=== PATIENT | female | born 1990 | race Caucasian/White ===

== ENCOUNTER → 2017-11-28 | Outpatient (CLI) | payer OTHER ==
--- NOTE | 2017-11-28 13:20 | RADIOLOGY REPORT (SQ) ---
EXAM DESCRIPTION: U/S ABDOMEN LIMITED W/O DOP COMPLETED DATE/TIME: 11/28/2017 11:08 am REASON FOR STUDY: RIGHT UPPER QUADRANT PAIN R10.11 RIGHT UPPER QUADRANT PAIN COMPARISON: None. TECHNIQUE: Dynamic and static grayscale images acquired of the abdomen and recorded on PACS. Additio nal selected color Doppler and spectral images recorded. LIMITATIONS: None. FINDINGS: PANCREAS: Midline pancreas unremarkable LIVER: No masses. Echotexture normal. LIVER VASCULATURE: Normal directional flow of the main portal vein and hepatic veins. GALLBLADDER: No stones. Normal wall thickness. No pericholecystic fluid. ULTRASOUND-DETECTED MICHAEL'S SIGN: Negative. INTRAHEPATIC DUCTS AND COMMON DUCT: CBD and intrahepatic ducts normal caliber. No filling defects. INFERIOR VENA CAVA: Normal flow. AORTA: No aneurysm. RIGHT KIDNEY: Normal size. Normal echogenicity. No solid or suspicious masses. No hydronephrosis. No calcifications. PERITONEAL AND RIGHT PLEURAL SPACE: No ascites or effusions. OTHER: No other significant findings. IMPRESSION: NORMAL RIGHT UPPER QUADRANT ULTRASOUND. TECHNICAL DOCUMENTATION: JOB ID: [id number] [employer]- All Rights Reserved Reading location - IP/workstation name: [email or web address]
== END ==
LOC: RAD 10:26
PROVIDERS: ATTEND Physician Assistant
DX: R10.11 Right upper quadrant pain (principal)
CPT/HCPCS: 76705

== ENCOUNTER → 2017-11-30 | Outpatient (CLI) | payer OTHER ==
[2017-11-30 13:02] LABS: ABSOLUTE BASOPHILS # (AUTO) 0.1 10^3/uL (0.0-0.2); ABSOLUTE EOSINOPHILS # (AUTO) 0.1 10^3/uL (0.0-0.6); ABSOLUTE LYMPHOCYTES (AUTO) 1.8 10^3/uL (0.5-4.7); ABSOLUTE MONOCYTES (AUTO) 0.4 10^3/uL (0.1-1.4); ABSOLUTE NEUT (AUTO) 4.8 10^3/uL (1.7-8.2); BASOPHILS % (AUTO) 0.8 % (0-2); EOSINOPHILS % (AUTO) 1.6 % (0-6); HEMATOCRIT 36.7 % (36.0-47.0); LYMPHOCYTES % (AUTO) 25.2 % (13-45); MEAN CORPUSCULAR HEMOGLOBIN 28.7 pg (27.0-33.4); MEAN CORPUSCULAR HGB CONC 35.4 g/dL (32.0-36.0); MEAN CORPUSCULAR VOLUME 81 fl (80-97); MONOCYTES % (AUTO) 5.8 % (3-13); PLATELET COUNT 323 10^3/uL (150-450); RED BLOOD COUNT 4.52 10^6/uL (3.72-5.28); RED CELL DISTRIBUTION WIDTH 14.2 % (11.5-14.0); SEGMENTED NEUTROPHILS % (AUTO) 66.6 % (42-78); TOTAL CELLS COUNTED % (AUTO) 100 %; WHITE BLOOD COUNT 7.2 10^3/uL (4.0-10.5)
[2017-11-30 13:31] LABS: ALANINE AMINOTRANSFERASE 22 U/L (9-52); ALKALINE PHOSPHATASE 70 U/L (38-126); ANION GAP 12 (5-19); ASPARTATE AMINO TRANSFERASE 18 U/L (14-36); BILIRUBIN,DIRECT 0.3 mg/dL (0.0-0.4); BILIRUBIN,TOTAL 0.5 mg/dL (0.2-1.3); BLOOD UREA NITROGEN 12 mg/dL (7-20); CALCIUM 8.9 mg/dL (8.4-10.2); CARBON DIOXIDE 28 mmol/L (22-30); CHLORIDE 104 mmol/L (98-107); GLUCOSE 87 mg/dL (75-110); POTASSIUM 4.3 mmol/L (3.6-5.0); TOTAL PROTEIN 7.1 g/dL (6.3-8.2)
== END ==
LOC: OD 11:55
PROVIDERS: ATTEND Physician Assistant
DX: R10.11 Right upper quadrant pain (principal)
CPT/HCPCS: 36415; 80053; 83690; 85025

== ENCOUNTER → 2017-12-14 | Outpatient (CLI) | payer OTHER ==
[2017-12-14 13:18] LABS: ABSOLUTE EOSINOPHILS # (AUTO) 0.1 10^3/uL (0.0-0.6); ABSOLUTE LYMPHOCYTES (AUTO) 1.7 10^3/uL (0.5-4.7); ABSOLUTE MONOCYTES (AUTO) 0.4 10^3/uL (0.1-1.4); ABSOLUTE NEUT (AUTO) 5.1 10^3/uL (1.7-8.2); BASOPHILS % (AUTO) 0.5 % (0-2); EOSINOPHILS % (AUTO) 1.3 % (0-6); HEMOGLOBIN 13.8 g/dL (12.0-15.5); LYMPHOCYTES % (AUTO) 23.6 % (13-45); MEAN CORPUSCULAR HEMOGLOBIN 28.5 pg (27.0-33.4); MEAN CORPUSCULAR HGB CONC 35.3 g/dL (32.0-36.0); MEAN CORPUSCULAR VOLUME 81 fl (80-97); MONOCYTES % (AUTO) 5.2 % (3-13); PLATELET COUNT 322 10^3/uL (150-450); RED BLOOD COUNT 4.84 10^6/uL (3.72-5.28); RED CELL DISTRIBUTION WIDTH 14.2 % (11.5-14.0); SEGMENTED NEUTROPHILS % (AUTO) 69.4 % (42-78); TOTAL CELLS COUNTED % (AUTO) 100 %; WHITE BLOOD COUNT 7.4 10^3/uL (4.0-10.5)
[2017-12-14 13:44] LABS: ALANINE AMINOTRANSFERASE 20 U/L (9-52); ALBUMIN 4.5 g/dL (3.5-5.0); ALKALINE PHOSPHATASE 54 U/L (38-126); ANION GAP 14 (5-19); ASPARTATE AMINO TRANSFERASE 17 U/L (14-36); BILIRUBIN,DIRECT 0.3 mg/dL (0.0-0.4); BILIRUBIN,TOTAL 0.4 mg/dL (0.2-1.3); BLOOD UREA NITROGEN 9 mg/dL (7-20); CALCIUM 9.2 mg/dL (8.4-10.2); CARBON DIOXIDE 25 mmol/L (22-30); CHLORIDE 105 mmol/L (98-107); GLUCOSE 75 mg/dL (75-110); LIPASE 66.7 U/L (23-300); POTASSIUM 4.3 mmol/L (3.6-5.0); SODIUM 144.3 mmol/L (137-145)
== END ==
LOC: OD 12:22
PROVIDERS: ATTEND Physician Assistant
DX: R10.11 Right upper quadrant pain (principal)
CPT/HCPCS: 36415; 80053; 83690; 85025

== ENCOUNTER 2017-12-19 09:50 | Day surgery (SDC) | payer OTHER ==
[~2017-12-19 09:50] MED LIST: DIPHENHYDRAMINE HCL 50 MG/ML VIAL ONE; EPINEPHRINE INJ 1 MG/10 ML DISP.SYRIN ONE; FENTANYL CITRATE INJ/PF 100 MCG/2 ML AMPUL ONE; FLUMAZENIL INJ 0.5 MG/5 ML VIAL ONE; GLUCAGON,HUMAN RECOMB 1 MG INJ ONE; NALOXONE HCL INJ/PF 0.4 MG/1 ML SDV ONE; ONDANSETRON HCL INJ/PF 4 MG/2 ML SDV ONE
[2017-12-19] MEDS: MIDAZOLAM 2 MG/2 ML INJ ONE ×2 (10:20→10:24)
--- NOTE | 2017-12-19 10:31 | Operative Report ---
Operative Report DATE OF SURGERY: 12/19/17 Operative Report: The risks benefits and alternatives of the procedure explained to the patient in detail and informed consent is obtained .A GIF Olympus video scope was inserted into the patient's mouth and hypopharynx, the esophagus is identified intubated and insufflated, the scope was then advanced through the esophagus stomach and duodenum ,retroflexion maneuver is done, the esophagus stomach and first and second portions of the duodenum examined PREOPERATIVE DIAGNOSIS: Gastroesophageal reflux disease POSTOPERATIVE DIAGNOSIS: Gastritis status post biopsy rule out Helicobacter pylori OPERATION: EGD with biopsy SURGEON: ROMAN DILL ANESTHESIA: Moderate Sedation - 4 mg of Versed, 75 mcg of fentanyl. Conscious sedation monitoring time 30 minutes. TISSUE REMOVED OR ALTERED: As noted above. COMPLICATIONS: None. ESTIMATED BLOOD LOSS: None. INTRAOPERATIVE FINDINGS: As noted above. PROCEDURE: Patient tolerated the procedure well. No immediate postprocedure complications are noted. Patient discharged in good condition. Discharge date 12/19/2017. Discharge diet: Regular. Discharge activity: Regular. 2-3 week follow-up to discuss findings. Patient is instructed call the office or proceed to the emergency room should there be any further problems or questions. We will wait on pathology.
[2017-12-19 11:29] VITALS: BP 108/69
== END 2017-12-19 11:30 | disposition home or self-care (01) ==
LOC: END 09:50
PROVIDERS: ATTEND Internal Medicine Gastroenterology
DX: K29.50 Unspecified chronic gastritis without bleeding (principal); K21.9 Gastro-esophageal reflux disease without esophagitis; E03.9 Hypothyroidism, unspecified; Z79.899 Other long term (current) drug therapy
CPT/HCPCS: 43239; 88342 ×2; 88305 ×2; J2250; J3010; J0171; J1200; J1610; J2310; J2405; J3490

== ENCOUNTER → 2017-12-19 | Outpatient (CLI) | payer OTHER ==
--- NOTE | 2017-12-19 10:00 | RADIOLOGY REPORT (SQ) ---
EXAM DESCRIPTION: NM HIDA SCAN WITH CCK COMPLETED DATE/TIME: 12/19/2017 9:48 am REASON FOR STUDY: RUQ PAIN R10.11 RIGHT UPPER QUADRANT PAIN COMPARISON: None. RADIONUCLIDE AND DOSE: DOSAGE RADIONUCLIDE: 5.26 millicuries Tc99m Mebrofenin. DOSAGE CCK: 1.5 micrograms. DOSAGE MORPHINE: Not required. The route of agent administration: Intravenous TECHNIQUE: Serial imaging right upper quadrant up to 60 minutes following injection of radionuclide. CCK injected after gallbladder visualized. LIMITATIONS: None. FINDINGS: LIVER: Normal visualization without areas of photopenia. INTRAHEPATIC BILE DUCTS: Normal size and no delay in visualization. COMMON BILE DUCT: Normal without dilatation. GALLBLADDER: Normal visualization. Calculated ejection fraction of 90%. Normal range is greater th an 35%. PHYSICAL RESPONSE: Patients presenting complaint was reproduced. OTHER: No other significant finding. IMPRESSION: Normal study without cystic or common duct obstruction. Ejection fraction is normal. W ith CCK administration the patient's symptoms were reproduced. TECHNICAL DOCUMENTATION: JOB ID: [id number] [employer]- All Rights Reserved Reading location - IP/workstation name: [email or web address]
== END ==
LOC: RAD 07:37
PROVIDERS: ATTEND Physician Assistant
DX: R10.11 Right upper quadrant pain (principal)
CPT/HCPCS: 78227; J2805; A9537; Q9969

== ENCOUNTER 2018-03-24 16:03 | Inpatient (IN) | payer OTHER ==
[2018-03-24] MEDS ORDERED: NORMAL SALINE 1000 ML 1,000 ML IV ONE ×3 (16:51→21:45)
[2018-03-24] MEDS ORDERED: ONDANSETRON HCL INJ/PF 4 MG/2 ML SDV IV ONE (16:52)
[2018-03-24] MEDS ORDERED: MORPHINE SULFATE 10 MG/ML INJ IV ONE (16:52)
--- NOTE | 2018-03-24 16:56 | ER Document Report ---
ED Medical Screen (RME) - General Chief Complaint: Post Surgical Pain Stated Complaint: ABDOMINAL PAIN POST SURGERY Time Seen by Provider: 03/24/18 16:46 Notes: Patient is a 27 year old female with recent lap josh at [facility] that presents to the emergency department for chief complaint of abdominal pain. Patient reports that she had a lap josh on Sunday at [facility] and she did stay overnight due to posts operative pain, she reports that the pain has not improved in the RUQ and she developed bruising around the one port site. And she noticed some redness just below her bellybutton and was worried about that as well. ROS: Other than noted above, the 12 point review of systems was reviewed with the patient and were negative, all pertinent findings are included in the HPI. PHYSICAL EXAMINATION: Vital signs reviewed. GENERAL: Well-appearing, well-nourished and in no acute distress. HEAD: Atraumatic, normocephalic. EYES: Pupils equal round extraocular movements intact, conjunctiva are normal. ENT: Nares patent NECK: Normal range of motion CV: Heart regular rate and rhythm LUNGS: No respiratory distress Abdomen: There is an area of ecchymosis around her one port site, without evidence of infection, likely subcutaneous hematoma from trocar placement, around the umbilicus, there is an area of erythema just below, that tender to palpate, no bruising noted from the wound site, that does have Dermabond in place. Patient also has some right upper quadrant tenderness, and right CVA tenderness. Musculoskeletal: Normal range of motion NEUROLOGICAL: Normal speech PSYCH: Normal mood, normal affect. MDM: Patient seen and examined for rapid initial assessment. Vital signs reviewed. A comprehensive ED assessment and evaluation of the patient, analysis of test results and completion of the medical decision making process will be conducted by additional ED providers. *Note is created using voice recognition software and may contain spelling, syntax or grammatical errors. TRAVEL OUTSIDE OF THE [place] IN LAST 30 DAYS: No - Related Data Allergies/Adverse Reactions: No Known Allergies Allergy (Verified 12/19/17 10:01) Past Medical History - Past Medical History Cardiac Medical History: Denies: Hx Coronary Artery Disease, Hx Heart Attack, Hx Hypertension Pulmonary Medical History: Denies: Hx Asthma, Hx Bronchitis, Hx COPD, Hx Pneumonia Neurological Medical History: Reports: Hx Migraine, Hx Seizures - UNKNOWN ORIGIN NO MEDS 2006. Denies: Hx Cerebrovascular Accident Endocrine Medical History: Reports: Hx Hypothyroidism Musculoskeltal Medical History: Denies Hx Arthritis Past Surgical History: Reports: Hx Breast Surgery. Denies: Hx Hysterectomy - Immunizations Immunizations up to date: Yes Hx Diphtheria, Pertussis, Tetanus Vaccination: Yes Physical Exam - Vital signs Vitals: Temp Pulse Resp BP Pulse Ox 98.3 F 112 H 18 125/88 H 100 03/24/18 16:10 03/24/18 16:10 03/24/18 16:10 03/24/18 16:10 03/24/18 16:10 Course - Vital Signs Vital signs: Temp Pulse Resp BP Pulse Ox 98.3 F 112 H 18 125/88 H 100 03/24/18 16:10 03/24/18 16:10 03/24/18 16:10 03/24/18 16:10 03/24/18 16:10 Doctor's Discharge - Discharge Referrals: CONNIE JEFF PA [Primary Care Provider] - Follow up as needed
[2018-03-24 17:49] LABS: ABSOLUTE LYMPHOCYTES (AUTO) 0.9 10^3/uL (0.5-4.7); ABSOLUTE MONOCYTES (AUTO) 0.5 10^3/uL (0.1-1.4); ABSOLUTE NEUT (AUTO) 7.3 10^3/uL (1.7-8.2); BASOPHILS % (AUTO) 0.4 % (0-2); EOSINOPHILS % (AUTO) 0.2 % (0-6); HEMATOCRIT 32.4 % (36.0-47.0); HEMOGLOBIN 11.2 g/dL (12.0-15.5); LYMPHOCYTES % (AUTO) 9.8 % (13-45); MEAN CORPUSCULAR HGB CONC 34.6 g/dL (32.0-36.0); MEAN CORPUSCULAR VOLUME 84 fl (80-97); MONOCYTES % (AUTO) 6.1 % (3-13); PLATELET COUNT 311 10^3/uL (150-450); RED BLOOD COUNT 3.86 10^6/uL (3.72-5.28); RED CELL DISTRIBUTION WIDTH 15.3 % (11.5-14.0); SEGMENTED NEUTROPHILS % (AUTO) 83.5 % (42-78); TOTAL CELLS COUNTED % (AUTO) 100 %; WHITE BLOOD COUNT 8.8 10^3/uL (4.0-10.5)
[2018-03-24 17:59] LABS: APPEARANCE,URINE SLIGHTLY-CLOUDY; BILIRUBIN,URINE NEGATIVE (NEGATIVE); COLOR,URINE STRAW; GLUCOSE, URINE NEGATIVE (NEGATIVE); KETONES,URINE NEGATIVE (NEGATIVE); LEUKOCYTE ESTERASE,URINE LARGE (NEGATIVE); NITRITE,URINE NEGATIVE (NEGATIVE); PROTEIN,URINE NEGATIVE (NEGATIVE); URINE SPECIFIC GRAVITY 1.008; UROBILINOGEN,URINE NEGATIVE mg/dL (<2.0)
--- NOTE | 2018-03-24 18:48 | ER Document Report ---
ED General - General Chief Complaint: Post Surgical Pain Stated Complaint: ABDOMINAL PAIN POST SURGERY Time Seen by Provider: 03/24/18 16:46 Notes: Patient is a 27-year-old female without chronic medical problems, 2 days postop from a lap scopic cholecystectomy who presents with increasing abdominal pain, bruising around surgical sites and feeling of lightheadedness and dizziness. Patient states that immediately postoperatively she felt like she was bleeding around her surgical sites. She states over the next 24 hours she noted increasing bruising around 2 of the 3 laparoscopic sites that has gotten progressively worse since that time. She also notes a diffuse, aching, cramping pain to her abdomen. Nothing improves or worsens her symptoms. She has not had fever but states that she feels generally unwell. She has not contacted her surgeon regarding today's concerns. TRAVEL OUTSIDE OF THE [place] IN LAST 30 DAYS: No - Related Data Allergies/Adverse Reactions: No Known Allergies Allergy (Verified 12/19/17 10:01) Past Medical History - General Information source: Patient - Social History Smoking Status: Never Smoker Chew tobacco use (# tins/day): No Frequency of alcohol use: None Drug Abuse: None Lives with: Spouse/Significant other Family History: Reviewed & Not Pertinent Patient has suicidal ideation: No Patient has homicidal ideation: No - Past Medical History Cardiac Medical History: Denies: Hx Coronary Artery Disease, Hx Heart Attack, Hx Hypertension Pulmonary Medical History: Denies: Hx Asthma, Hx Bronchitis, Hx COPD, Hx Pneumonia Neurological Medical History: Reports: Hx Migraine, Hx Seizures - UNKNOWN ORIGIN NO MEDS 2006. Denies: Hx Cerebrovascular Accident Endocrine Medical History: Reports: Hx Hypothyroidism Renal/ Medical History: Denies: Hx Peritoneal Dialysis Musculoskeletal Medical History: Denies Hx Arthritis Past Surgical History: Reports: Hx Breast Surgery, Hx Cholecystectomy. Denies: Hx Hysterectomy - Immunizations Immunizations up to date: Yes Hx Diphtheria, Pertussis, Tetanus Vaccination: Yes Review of Systems - Review of Systems Notes: Constitutional: Negative for fever. HENT: Negative for sore throat. Eyes: Negative for visual changes. Cardiovascular: Negative for chest pain. Respiratory: Negative for shortness of breath. Gastrointestinal: Positive for abdominal pain and nausea Genitourinary: Negative for dysuria. Musculoskeletal: Negative for back pain. Skin: Positive for bruising around surgical site Neurological: Negative for headaches, weakness or numbness. 10 point ROS negative except as marked above and in HPI. Physical Exam - Vital signs Vitals: Temp Pulse Resp BP Pulse Ox 98.3 F 112 H 18 125/88 H 100 03/24/18 16:10 03/24/18 16:10 03/24/18 16:10 03/24/18 16:10 03/24/18 16:10 Interpretation: Tachycardic Notes: PHYSICAL EXAMINATION: GENERAL: Appears moderately uncomfortable but in no acute distress HEAD: Atraumatic, normocephalic. EYES: Pupils equal round and reactive to light, extraocular movements intact, sclera anicteric, conjunctiva are normal. ENT: nares patent, oropharynx clear without exudates. Moderately dry mucous membranes. NECK: Normal range of motion, supple without lymphadenopathy LUNGS: Breath sounds clear to auscultation bilaterally and equal. No wheezes rales or rhonchi. HEART: Regular tachycardia without murmurs ABDOMEN: Soft, generalized abdominal discomfort with no specific localization, normoactive bowel sounds. No guarding, no rebound. No masses appreciated. EXTREMITIES: Normal range of motion, no pitting or edema. No cyanosis. NEUROLOGICAL: No focal neurological deficits. Moves all extremities spontaneously and on command. PSYCH: Normal mood, normal affect. SKIN: Warm, Dry, mild diffuse pallor, ecchymosis around 2 of 3 total laporoscopic sites on the abdomen Course - Re-evaluation Re-evalutation: 03/24/18 18:45 Patient presents with 2 days of progressively worsening diffuse abdominal pain status post cholecystectomy 48 hours ago. The patient does have notable ecchymosis of her multiple of the laparoscopic sites, abdominal exam shows some mild diffuse tenderness mostly localized to the lower abdomen. No rebound or guarding. She does have some diffuse pallor, mild anemia noted on CBC which is an approximate two-point drop in her hemoglobin from November of this year. Surgery was performed at [facility] patient states she did not feel comfortable following up there as she did not have a good postoperative experience. She has not had fever or constitutional symptoms. Will proceed with CT scan of the abdomen and pelvis given the patient's new onset anemia, increasing generalized abdominal pain concern for possible postoperative intra- abdominal bleeding. 03/24/18 20:33 CT abdomen pelvis does show blood collecting under the liver. No active blush on CT of the abdomen pelvis with IV contrast. I have discussed with the surgeon on-call Dr. Barnes who has accepted the patient and will come to evaluate. - Vital Signs Vital signs: Temp Pulse Resp BP Pulse Ox 98.3 F 112 H 18 125/88 H 100 03/24/18 16:10 03/24/18 16:10 03/24/18 16:10 03/24/18 16:10 03/24/18 16:10 - Laboratory Result Diagrams: 03/24/18 17:20 03/24/18 18:30 Laboratory results interpreted by me: 03/24/18 03/24/18 03/24/18 17:20 17:20 18:30 Hgb 11.2 L Hct 32.4 L RDW 15.3 H Seg Neutrophils % 83.5 H Lymphocytes % 9.8 L Calcium 8.2 L AST 101 H ALT 131 H Total Protein 6.2 L Albumin 3.3 L Lipase 18.9 L Ur Leukocyte Esterase LARGE H - Diagnostic Test Radiology reviewed: Image reviewed, Reports reviewed Radiology results interpreted by me: 03/24/18 20:34 CT abdomen pelvis: Blood collection inferior to the liver Discharge - Discharge Clinical Impression: Blood loss anemia Postoperative haemorrhage Qualifiers: Surgical complication system/body Area: digestive system Procedure type: non- digestive system Qualified Code(s): K91.841 - Postprocedural hemorrhage of a digestive system organ or structure following other procedure Abdominal pain Qualifiers: Abdominal location: unspecified location Qualified Code(s): R10.9 - Unspecified abdominal pain Condition: Fair Disposition: ADMITTED OBSERVATION Admitting Provider: Surgicalist Unit Admitted: Surgical Floor Referrals: CONNIE JEFF PA [Primary Care Provider] - Follow up as needed
[2018-03-24 19:16] LABS: ALANINE AMINOTRANSFERASE 131 U/L (9-52); ALBUMIN 3.3 g/dL (3.5-5.0); ALKALINE PHOSPHATASE 71 U/L (38-126); ANION GAP 11 (5-19); ASPARTATE AMINO TRANSFERASE 101 U/L (14-36); BILIRUBIN,DIRECT 0.4 mg/dL (0.0-0.4); BILIRUBIN,TOTAL 0.7 mg/dL (0.2-1.3); BLOOD UREA NITROGEN 7 mg/dL (7-20); CALCIUM 8.2 mg/dL (8.4-10.2); CARBON DIOXIDE 26 mmol/L (22-30); CHLORIDE 105 mmol/L (98-107); GLUCOSE 86 mg/dL (75-110); LIPASE 18.9 U/L (23-300); POTASSIUM 4.2 mmol/L (3.6-5.0); SODIUM 142.2 mmol/L (137-145); TOTAL PROTEIN 6.2 g/dL (6.3-8.2)
--- NOTE | 2018-03-24 19:57 | RADIOLOGY REPORT (SQ) ---
EXAM DESCRIPTION: CT ABD/PELVIS WITH IV ONLY COMPLETED DATE/TIME: 03/24/2018 7:14 pm REASON FOR STUDY: post op pain, abdominal wall bruising COMPARISON: 12/19/2017 and earlier TECHNIQUE: CT scan of the abdomen and pelvis performed using helical scanning technique with dynamic intravenous contrast injection. No oral contrast. Images reviewed with lung, soft tissue, and bone windows. Reconstructed coronal and sagittal MPR images reviewed. Delayed images for evaluation of the urinary system also acquired. All images stored on PACS. All CT scanners at this facility use dose modulation, iterative reconstruction, and/or weight based d osing when appropriate to reduce radiation dose to as low as reasonably achievable (ALARA). [facility]: Dose Right [facility]: CareDose [facility]: Dose Right [facility]: Teradose 4D [facility]: Datapipe CONTRAST TYPE AND DOSE: contrast/concentration: Isovue 350.00 mg/ml; Total Contrast Delivered: 77.0 ml; Total Saline Delivered: 67.0 ml 77 mL IV of Omnipaque 350- low osmolar. RENAL FUNCTION: None required. The patient is less than 50 years old. RADIATION DOSE: CT Rad equipment meets quality standard of care and radiation dose reduction techniq ues were employed. CTDIvol: 10.4 - 13.5 mGy. DLP: 1365 mGy-cm.. LIMITATIONS: None. FINDINGS: LIVER: Along the undersurface of the right hepatic lobe is a moderate amount of hyper 10 m aterial that appears to originate from the gallbladder fossa. Liver otherwise is normal. No focal h epatic mass. No ductal dilatation. SPLEEN: Normal size. No focal lesions. PANCREAS: No masses. No significant calcifications. No adjacent inflammation or peripancreatic fluid collections. Pancreatic duct not dilated. GALLBLADDER: Surgically absent. ADRENAL GLANDS: No significant masses or asymmetry. RIGHT KIDNEY AND URETER: No solid masses. No significant calcifications. No hydronephrosis or hyd roureter. LEFT KIDNEY AND URETER: No solid masses. No significant calcifications. No hydronephrosis or hydr oureter. AORTA AND VESSELS: No aneurysm. No dissection. Renal arteries, SMA, celiac without stenosis. RETROPERITONEUM: No retroperitoneal adenopathy, hemorrhage or masses. BOWEL AND PERITONEAL CAVITY: No masses or inflammatory changes. No free fluid or peritoneal masses. APPENDIX: Normal. PELVIS: No mass. No free fluid. Normal bladder. ABDOMINAL WALL: No masses. No hernias. Stranding of the anterior subcutaneous fat, postsurgical. BONES: No significant or acute findings. OTHER: No other significant finding. IMPRESSION: Moderate amount of hemoperitoneum along the undersurface of the right hepatic lobe which appears to be originating from the gallbladder fossa. COMMENT: This report was called to the charge nurse Yue at19:47 on 03/24/2018. TECHNICAL DOCUMENTATION: JOB ID: [id number] Quality ID # [id number]: Final reports with documentation of one or more dose reduction techniques (e.g., Au tomated exposure control, adjustment of the mA and/or kV according to patient size, use of iterative reconstruction technique) 2010 [employer]- All Rights Reserved Reading location - IP/workstation name: [email or web address]
[2018-03-24] MEDS ORDERED: MORPHINE SULFATE 10 MG/ML INJ IV PRN (20:15)
--- NOTE | 2018-03-24 21:16 | PDOC H&P ---
History of Present Illness Admission Date/PCP: 03/24/18 20:50 JUAN VARMA Patient complains of: abdominal pains with lightheadedness History of Present Illness: SAMUEL AGARWAL is a 27 year old female who is 2 days post laparoscopic cholecystectomy at the [facility]. Post operatively has been c/o abdominal pains and bruising along the right lateral trocar site and some bloody drainage from umbilical trocar site. She was discharged yesterday. She has not really felt well and noted pains along increasing bruise site on her right lateral trocar site as well as lightheadedness which prompted her to take her to the ED. A Ct scan of the abdomen was done which showed moderate hemoperitoneum underneath the right lobe of the liver likely from cholecystectomy site. She is tachycardic and given a liyer of fluids which somehow relieved her lightheadedness. Denies fever/chills, nausea/vomiting nor diarrhea. Admits to constipation and does not feel any urgency to void. Past Medical History Cardiac Medical History: Denies: Coronary Artery Disease, Myocardial Infarction, Hypertension Pulmonary Medical History: Denies: Asthma, Bronchitis, Chronic Obstructive Pulmonary Disease (COPD), Pneumonia Neurological Medical History: Reports: Migraine, Seizures - UNKNOWN ORIGIN NO MEDS 2006 Endocrine Medical History: Reports: Hypothyroidism Musculoskeltal Medical History: Denies: Arthritis Hematology: Reports: Anemia Past Surgical History Past Surgical History: Reports: Cholecystectomy Denies: Hysterectomy Social History Lives with: Spouse/Significant other Smoking Status: Never Smoker Family History Family History: Reviewed & Not Pertinent Parental Family History Reviewed: Yes - both parents are healthy except for some thyroid problems Children Family History Reviewed: No Sibling(s) Family History Reviewed.: No Medication/Allergy Home Medications: Levothyroxine Sodium [Synthroid] 75 mcg PO DAILY 12/19/17 Allergies/Adverse Reactions: No Known Allergies Allergy (Verified 12/19/17 10:01) Review of Systems Constitutional: PRESENT: as per HPI Eyes: PRESENT: other - no visual/hearing changes Cardiovascular: PRESENT: other - no chest pains/cough Gastrointestinal: PRESENT: abdominal pain, constipation Neurological: PRESENT: other - lightheadedness Physical Exam Vital Signs: Temp Pulse Resp BP Pulse Ox 98.3 F 112 H 18 125/88 H 100 03/24/18 16:10 03/24/18 16:10 03/24/18 16:10 12/02/18 16:10 03/24/18 16:10 General appearance: PRESENT: mild distress Head exam: PRESENT: atraumatic Eye exam: PRESENT: conjunctiva pink Mouth exam: PRESENT: moist Neck exam: PRESENT: full ROM Respiratory exam: PRESENT: clear to auscultation benoit Cardiovascular exam: PRESENT: tachycardia Pulses: PRESENT: normal radial pulses Vascular exam: PRESENT: normal capillary refill GI/Abdominal exam: PRESENT: soft, tenderness - mild tenderness primarily around the bruised trocar site on the RUQ, other - mild redness around umbilical trocar site Rectal exam: PRESENT: deferred Extremities exam: PRESENT: full ROM Musculoskeletal exam: PRESENT: ambulatory Neurological exam: PRESENT: alert, oriented to person, oriented to place, oriented to time, oriented to situation Psychiatric exam: PRESENT: appropriate affect Skin exam: PRESENT: normal color, warm Results Impressions: Abdomen/Pelvis CT 03/24/18 18:42 IMPRESSION: Moderate amount of hemoperitoneum along the undersurface of the right hepatic lobe which appears to be originating from the gallbladder fossa. Assessment & Plan - Diagnosis (1) Abdominal pain Qualifiers: Abdominal location: unspecified location Qualified Code(s): R10.9 - Unspecified abdominal pain Is this a current diagnosis for this admission?: Yes (2) Blood loss anemia Is this a current diagnosis for this admission?: Yes (3) Postoperative haemorrhage Qualifiers: Surgical complication system/body Area: digestive system Procedure type: non-digestive system Qualified Code(s): K91.841 - Postprocedural hemorrhage of a digestive system organ or structure following other procedure Is this a current diagnosis for this admission?: Yes - Time Time Spent: 30 to 50 Minutes - Inpatient Certification Medical Necessity: Need Close Monitoring Due to Risk of Patient Decompensation, Need For IV Fluids, Need for IV Antibiotics - Plan Summary Plan Summary: Monitor Vital signs and H/H, Coags and WBC as well as LFT's Empiric antibiotics for cellulitis umbilical trocar site Hydrate
[2018-03-24] MEDS ORDERED: ONDANSETRON HCL INJ/PF 4 MG/2 ML SDV IV PRN (21:17)
[2018-03-24] MEDS: MORPHINE SULFATE 10 MG/ML INJ IV PRN (22:37)
[2018-03-25] MEDS: OXYCODONE-ACETAMINOPHEN 5-325 MG TABLET PO PRN ×2 (00:29→06:09)
[2018-03-25] MEDS: MORPHINE SULFATE 10 MG/ML INJ IV PRN (03:44)
[2018-03-25 06:47] LABS: INTERNATIONAL RATION (INR) 1.03; PROTHROMBIN TIME 14.1 SEC (11.4-15.4)
[2018-03-25 06:50] LABS: ABSOLUTE EOSINOPHILS # (AUTO) 0.1 10^3/uL (0.0-0.6); ABSOLUTE LYMPHOCYTES (AUTO) 1.1 10^3/uL (0.5-4.7); ABSOLUTE MONOCYTES (AUTO) 0.5 10^3/uL (0.1-1.4); ABSOLUTE NEUT (AUTO) 4.4 10^3/uL (1.7-8.2); BASOPHILS % (AUTO) 0.6 % (0-2); EOSINOPHILS % (AUTO) 1.3 % (0-6); HEMATOCRIT 24.5 % (36.0-47.0); LYMPHOCYTES % (AUTO) 17.7 % (13-45); MEAN CORPUSCULAR HEMOGLOBIN 29.2 pg (27.0-33.4); MEAN CORPUSCULAR HGB CONC 34.7 g/dL (32.0-36.0); MEAN CORPUSCULAR VOLUME 84 fl (80-97); MONOCYTES % (AUTO) 8.4 % (3-13); PLATELET COUNT 241 10^3/uL (150-450); RED BLOOD COUNT 2.91 10^6/uL (3.72-5.28); RED CELL DISTRIBUTION WIDTH 14.7 % (11.5-14.0); TOTAL CELLS COUNTED % (AUTO) 100 %; WHITE BLOOD COUNT 6.1 10^3/uL (4.0-10.5)
[2018-03-25 06:56] LABS: HEMOGLOBIN 8.5 g/dL (12.0-15.5)
[2018-03-25 07:23] LABS: ALANINE AMINOTRANSFERASE 127 U/L (9-52); ALBUMIN 2.7 g/dL (3.5-5.0); ALKALINE PHOSPHATASE 65 U/L (38-126); ANION GAP 9 (5-19); ASPARTATE AMINO TRANSFERASE 113 U/L (14-36); BILIRUBIN,DIRECT 0.4 mg/dL (0.0-0.4); BILIRUBIN,TOTAL 0.6 mg/dL (0.2-1.3); CALCIUM 7.9 mg/dL (8.4-10.2); CARBON DIOXIDE 25 mmol/L (22-30); CHLORIDE 106 mmol/L (98-107); GLUCOSE 85 mg/dL (75-110); SODIUM 140.2 mmol/L (137-145); TOTAL PROTEIN 5.3 g/dL (6.3-8.2)
[2018-03-25 07:39] LABS: BLOOD UREA NITROGEN 4 mg/dL (7-20)
--- NOTE | 2018-03-25 09:24 | PDOC PROGRESS REPORT ---
Subjective Progress Note for:: 03/25/18 Subjective:: Is feeling better; tolerating a diet; has not been up to move around too much. Reason For Visit: POST OPERATIVE BLEEDING,ANEMIA,ABDOMINAL PAINS Physical Exam Vital Signs: Temp Pulse Resp BP Pulse Ox 98.9 F 92 17 125/89 H 100 03/24/18 21:24 03/24/18 21:24 03/24/18 21:24 03/24/18 21:24 03/24/18 21:24 Intake & Output 03/24/18 03/25/18 03/26/18 06:59 06:59 06:59 Intake Total 2420 Output Total 2300 Balance 120 Weight 71 kg General appearance: PRESENT: no acute distress GI/Abdominal exam: PRESENT: other - All operative incisions examined; skin glue in place; mild to moderate amount of ecchymosis and abdominal wall glide but no tight hematoma, drainage etc.; Infraumbilical incision with some bruising; there is no evidence of infection. Results Laboratory Results: 03/25/18 05:51 03/25/18 05:51 03/25/18 03/25/18 05:51 05:51 WBC 6.1 RBC 2.91 L Hgb 8.5 L D Hct 24.5 L MCV 84 MCH 29.2 MCHC 34.7 RDW 14.7 H Plt Count 241 Seg Neutrophils % 72.0 Lymphocytes % 17.7 Monocytes % 8.4 Eosinophils % 1.3 Basophils % 0.6 Absolute Neutrophils 4.4 Absolute Lymphocytes 1.1 Absolute Monocytes 0.5 Absolute Eosinophils 0.1 Absolute Basophils 0.0 Sodium 140.2 Potassium 4.0 Chloride 106 Carbon Dioxide 25 Anion Gap 9 BUN 4 L Creatinine 0.71 Est GFR ( Amer) > 60 Est GFR (Non-Af Amer) > 60 Glucose 85 Calcium 7.9 L Total Bilirubin 0.6 AST 113 H ALT 127 H Alkaline Phosphatase 65 Total Protein 5.3 L Albumin 2.7 L Lipase 10.0 L Impressions: Abdomen/Pelvis CT 03/24/18 18:42 IMPRESSION: Moderate amount of hemoperitoneum along the undersurface of the right hepatic lobe which appears to be originating from the gallbladder fossa. Assessment & Plan - Diagnosis (1) Blood loss anemia Is this a current diagnosis for this admission?: Yes Plan: Impression: Patient is 3 days status post laparoscopic cholecystectomy with postoperative deterioration likely due to retained blood loss intra-abdominally ; patient is hemodynamically stable and clinically improved; hemoglobin did drop to 8.5 possibly multifactorial; liver function studies are consistent with postoperative changes; doubt this represents a bile leak. Recommendations: 1. We will start stool softeners, multivitamin 2. Will discontinue all IV narcotics. We will also discontinue IV Ancef 3. Advance diet; patient tolerates well hopefully home soon
[2018-03-25] MEDS ORDERED: DOCUSATE SODIUM 100 MG CAPSULE PO SCH (10:00)
[2018-03-25] MEDS: KETOROLAC TROMETHAMINE 10 MG TABLET PO PRN ×3 (10:35→20:30)
[2018-03-25] MEDS: DOCUSATE SODIUM 100 MG CAPSULE PO SCH ×2 (10:49→20:48)
[2018-03-25] MEDS: MULTIVITAMINS W-IRON TABLET, CHEWABLE PO SCH (14:19)
[2018-03-25] MEDS ORDERED: KETOROLAC TROMETHAMINE 10 MG TABLET PO ONE (14:45)
[2018-03-25] MEDS ORDERED: ONDANSETRON HCL INJ/PF 4 MG/2 ML SDV IV PRN (15:00)
[2018-03-25] MEDS: ACETAMINOPHEN 325 MG TABLET PO PRN (22:20)
--- NOTE | 2018-03-26 05:18 | Physician Advisory Note ---
Physician Advisor ProgressNote .: Pursuant to the plan for [facility], I have reviewed the medical record for this patient. Physician Advisor Statement: Please consider documenting, if you agree: 1. "Acute blood loss anemia" (to avoid a query) 2. Medical necessity: Please state clinical reasons that pt, although she was feeling better & not acutely worsening further on 12/3 AM, still needed to be monitored closely in hospital (?persistent tachycardia? developing fevers/ bacterial infxn after Ancef discontinued?, significantly lower H/H?, ..."), & may change to inpatient status. Thanks! CK
[2018-03-26 06:32] LABS: ABSOLUTE EOSINOPHILS # (AUTO) 0.2 10^3/uL (0.0-0.6); ABSOLUTE LYMPHOCYTES (AUTO) 0.9 10^3/uL (0.5-4.7); ABSOLUTE MONOCYTES (AUTO) 0.6 10^3/uL (0.1-1.4); ABSOLUTE NEUT (AUTO) 5.8 10^3/uL (1.7-8.2); BASOPHILS % (AUTO) 0.3 % (0-2); EOSINOPHILS % (AUTO) 2.5 % (0-6); HEMATOCRIT 26.4 % (36.0-47.0); HEMOGLOBIN 9.3 g/dL (12.0-15.5); LYMPHOCYTES % (AUTO) 12.4 % (13-45); MEAN CORPUSCULAR HEMOGLOBIN 29.2 pg (27.0-33.4); MEAN CORPUSCULAR HGB CONC 35.3 g/dL (32.0-36.0); MEAN CORPUSCULAR VOLUME 83 fl (80-97); MONOCYTES % (AUTO) 8.1 % (3-13); PLATELET COUNT 270 10^3/uL (150-450); RED BLOOD COUNT 3.19 10^6/uL (3.72-5.28); RED CELL DISTRIBUTION WIDTH 14.8 % (11.5-14.0); SEGMENTED NEUTROPHILS % (AUTO) 76.7 % (42-78); TOTAL CELLS COUNTED % (AUTO) 100 %; WHITE BLOOD COUNT 7.6 10^3/uL (4.0-10.5)
[2018-03-26] MEDS: MULTIVITAMINS W-IRON TABLET, CHEWABLE PO SCH (10:15)
[2018-03-26] MEDS: ACETAMINOPHEN 325 MG TABLET PO PRN ×2 (10:15→17:37)
[2018-03-26] MEDS: DOCUSATE SODIUM 100 MG CAPSULE PO SCH ×2 (10:15→17:37)
[2018-03-26] MEDS: KETOROLAC TROMETHAMINE 10 MG TABLET PO PRN (12:14)
--- NOTE | 2018-03-26 12:34 | PDOC PROGRESS REPORT ---
Subjective Progress Note for:: 03/26/18 Subjective:: Still having right sided abdominal pain but improved. Tolerating diet. Patient complains of sore throat and a cough. Reason For Visit: POST OPERATIVE BLEEDING,ANEMIA,ABDOMINAL PAINS Physical Exam Vital Signs: Temp Pulse Resp BP Pulse Ox 100.1 F 99 16 119/74 96 03/26/18 07:36 03/26/18 07:36 03/26/18 07:36 03/26/18 07:36 03/26/18 07:36 Intake & Output 03/25/18 03/26/18 03/27/18 06:59 06:59 06:59 Intake Total 2420 2575 Output Total 2300 2750 Balance 120 -175 Weight 71 kg 71 kg General appearance: PRESENT: no acute distress, cooperative Throat exam: PRESENT: other - No exudate seen. Respiratory exam: PRESENT: clear to auscultation benoit Cardiovascular exam: PRESENT: RRR GI/Abdominal exam: PRESENT: other - Soft, nondistended, bruising along the most lateral right-sided trocar site extending to the flank. Tenderness along the right upper abdomen without peritoneal signs. Extremities exam: PRESENT: other - No swelling and no tenderness Results Laboratory Results: 03/26/18 06:02 03/25/18 05:51 03/26/18 06:02 WBC 7.6 RBC 3.19 L Hgb 9.3 L Hct 26.4 L MCV 83 MCH 29.2 MCHC 35.3 RDW 14.8 H Plt Count 270 Seg Neutrophils % 76.7 Lymphocytes % 12.4 L Monocytes % 8.1 Eosinophils % 2.5 Basophils % 0.3 Absolute Neutrophils 5.8 Absolute Lymphocytes 0.9 Absolute Monocytes 0.6 Absolute Eosinophils 0.2 Absolute Basophils 0.0 03/24/18 22:40 Clean Catch Midstream Urine Culture - Final NO GROWTH 2 DAYS Impressions: Abdomen/Pelvis CT 03/24/18 18:42 IMPRESSION: Moderate amount of hemoperitoneum along the undersurface of the right hepatic lobe which appears to be originating from the gallbladder fossa. Assessment & Plan - Diagnosis (1) Postoperative haemorrhage Qualifiers: Surgical complication system/body Area: digestive system Procedure type: non-digestive system Qualified Code(s): K91.841 - Postprocedural hemorrhage of a digestive system organ or structure following other procedure Is this a current diagnosis for this admission?: Yes Plan: Postoperative bleed after laparoscopic cholecystectomy. It appears to have stopped. Patient with residual pain with her hematoma. Hematocrit increased from yesterday. Will discharge patient home with follow-up with her surgeon. Also recommend follow-up liver function studies since she does have mild elevations of her transaminases which could be related with her perihepatic hematoma. I have discussed this finding with the patient. (2) Cough Is this a current diagnosis for this admission?: Yes Plan: Cough with sore throat. Possible viral syndrome. Will ask hospitalist for their input prior to discharge.
--- NOTE | 2018-03-26 14:19 | RADIOLOGY REPORT (SQ) ---
EXAM DESCRIPTION: CHEST SINGLE VIEW COMPLETED DATE/TIME: 03/26/2018 2:09 pm REASON FOR STUDY: cough COMPARISON: None. NUMBER OF VIEWS: One view. TECHNIQUE: Single frontal radiographic view of the chest acquired. LIMITATIONS: None. FINDINGS: LUNGS AND PLEURA: No opacities, masses or pneumothorax. No pleural effusion. MEDIASTINUM AND HILAR STRUCTURES: No masses. Contour normal. HEART AND VASCULAR STRUCTURES: Heart normal in size. Normal vasculature. BONES: No acute findings. HARDWARE: None in the chest. OTHER: No other significant finding. IMPRESSION: NO SIGNIFICANT RADIOGRAPHIC FINDING IN THE CHEST. TECHNICAL DOCUMENTATION: JOB ID: [id number] [employer]- All Rights Reserved Reading location - IP/workstation name: [email or web address]
--- NOTE | 2018-03-26 18:19 | PDOC CONSULTATION ---
Consultation Consult Date: 03/26/18 Attending physician:: RAVINDER GUERRA Consult reason:: fever, cough History of Present Illness Admission Date/PCP: 03/26/18 15:24 JUAN VARMA Patient complains of: fever, cough History of Present Illness: SAMUEL AGARWAL is a 27 year old female with no significant PMH from a recent laparosopic cholecystectomy who initially presented with abdominal pain. She was found to have a hematoma likely a post-laparoscopic complication and was admitted under surgery. She was managed conservatively and her hemoglobin has been stable. She has been deemed stable for discharge by surgery but she complained earlier to day of cough, sore throat and fever hence hospitalist service was consulted. Patient says she started having minimally productive cough yesterday and subsequently devleoped sore throat. She did have a fever of 100.7 yesterday and 100.1 this morning. She denies any SOB. She did complain of having problems with urinary hesitancy in the past 3 days but denies dysuria, hematuria, frequency or flank pain. Past Medical History Cardiac Medical History: Denies: Coronary Artery Disease, Myocardial Infarction, Hypertension Pulmonary Medical History: Denies: Asthma, Bronchitis, Chronic Obstructive Pulmonary Disease (COPD), Pneumonia Neurological Medical History: Reports: Migraine, Seizures - UNKNOWN ORIGIN NO MEDS 2006 Endocrine Medical History: Reports: Hypothyroidism Musculoskeltal Medical History: Denies: Arthritis Hematology: Reports: Anemia Past Surgical History Past Surgical History: Reports: Cholecystectomy Denies: Hysterectomy Social History Lives with: Spouse/Significant other Smoking Status: Never Smoker - Advance Directive Resuscitation Status: Full Code Family History Family History: Reviewed & Not Pertinent Parental Family History Reviewed: Yes - no premature CAD Children Family History Reviewed: No Sibling(s) Family History Reviewed.: No Medication/Allergy Home Medications: Iron 2 tab PO DAILY 03/25/18 Levothyroxine Sodium [Synthroid 0.025 mg Tablet] 0.025 mg PO DAILY 03/25/18 Norgestimate-Ethinyl Estradiol [Ortho Tri-Cyclen Lo Tablet] 1 tab PO DAILY 03/25 Amox Tr/Potassium Clavulanate [Augmentin 875-125 mg Tablet] 1 tab PO BID 5 Days #10 tablet 03/26/18 Oxycodone HCl/Acetaminophen [Percocet 5-325 mg Tablet] 1 tab PO ASDIR PRN #15 tablet 03/26/18 Allergies/Adverse Reactions: No Known Allergies Allergy (Verified 12/19/17 10:01) Review of Systems All systems: reviewed and no additional remarkable complaints except as stated - as mentioned in HPI Constitutional: ABSENT: chills, fever(s), headache(s), weight gain, weight loss Eyes: ABSENT: visual disturbances Ears: ABSENT: hearing changes Physical Exam Vital Signs: Temp Pulse Resp BP Pulse Ox 99.0 F 89 20 114/72 98 03/26/18 16:59 03/26/18 16:59 03/26/18 16:59 03/26/18 16:59 03/26/18 16:59 General appearance: PRESENT: no acute distress, well-developed, well-nourished Head exam: PRESENT: atraumatic, normocephalic Eye exam: PRESENT: conjunctiva pink, EOMI, PERRLA. ABSENT: scleral icterus Ear exam: PRESENT: normal external ear exam Teeth exam: ABSENT: dental caries, dental tenderness, edentulous, poor dentation , other Neck exam: ABSENT: carotid bruit, JVD, lymphadenopathy, thyromegaly Respiratory exam: PRESENT: clear to auscultation benoit. ABSENT: rales, rhonchi, wheezes Cardiovascular exam: PRESENT: RRR. ABSENT: diastolic murmur, rubs, systolic murmur GI/Abdominal exam: PRESENT: normal bowel sounds, soft, tenderness - mild direct RUQ tenderness. ABSENT: distended, guarding, mass, organolmegaly, rebound Rectal exam: PRESENT: deferred Neurological exam: PRESENT: alert, awake, oriented to person, oriented to place , oriented to time, oriented to situation, CN II-XII grossly intact. ABSENT: motor sensory deficit Results Impressions: Abdomen/Pelvis CT 03/24/18 18:42 IMPRESSION: Moderate amount of hemoperitoneum along the undersurface of the right hepatic lobe which appears to be originating from the gallbladder fossa. Chest X-Ray 03/26/18 00:00 IMPRESSION: NO SIGNIFICANT RADIOGRAPHIC FINDING IN THE CHEST. Assessment & Plan - Diagnosis (1) Fever Is this a current diagnosis for this admission?: Yes Plan: Patient does complain of cough and sore throat. She has clear breath sounds. Throat examination is unremarkable with only slightly prominent adenoids but no erythema or exudates. Chest x-ray is normal. Patient's cough and sore throat are likely viral in nature. She did have a UA the other day which is consistent with UTI. Her only only LUTS complaint is urinary hesitancy. Recommend Augmentin for UTI. - Time Time Spent: 30 to 50 Minutes
[2018-03-26 18:39] VITALS: BP 120/89
--- NOTE | 2018-03-27 09:36 | DISCHARGE SUMMARY E ---
Discharge Summary NAME: SAMUEL AGARWAL : 1990 AGE: 27Y ADMITTED: 03/24/2018 DISCHARGED: 03/26/2018 DISCHARGE DIAGNOSES: 1. Postoperative bleeding after laparoscopic cholecystectomy. 2. Urinary tract infection. 3. Viral syndrome. HOSPITAL COURSE: The patient was admitted for observation. Her hematocrit had decreased down to 24.5 on March 25; however, it was back up to 26.4 the following day. The patient remained hemodynamically stable. She did have a low-grade fever of 100.7 on March 25 but it had resolved by the following day. The patient still had right-sided abdominal pain but no peritoneal signs. The pain was stable from the admission. She also noted some sore throat and cough for which she underwent a chest x-ray which was unremarkable. Her oropharynx appeared unremarkable on exam. Hospitalist consultation was obtained. They felt that it was more consistent with a viral syndrome; however, hospitalist recommended Augmentin in light of her abnormal urinalysis which had demonstrated a large amount of leukocyte esterase and WBCs. Her cultures were still pending at the time of discharge. The patient is now being discharged to home. She is encouraged to stay active but avoid any strenuous activity. She is to follow up with her surgeon next week. She may follow a low-fat diet. She may resume her home medications. Additional medication is Percocet 1 p.o. every 4 hours p.r.n. pain and Augmentin 875 mg/125 mg tablet b.i.d. for 5 days. She is to call immediately for any problems or concerns. DICTATING PHYSICIAN: LOC GUERRA M.D. [id number] PHY#: [id number] ID: [id number] JOB#: [id number] ACCT: [id number] cc:Phani YEE M.D. >
== END 2018-03-26 20:12 | disposition home or self-care (01) | DRG 920 ==
LOC: ER 16:03 → EH 20:50 → 4S 22:24 → 2S 03-25 23:14 → OBSVTOIN 03-26 15:24
PROVIDERS: ATTEND Surgery
DX: K91.840 Postprocedural hemorrhage of a digestive system organ or structure following a digestive system procedure (principal); N39.0 Urinary tract infection, site not specified; B34.9 Viral infection, unspecified; D50.0 Iron deficiency anemia secondary to blood loss (chronic); E03.9 Hypothyroidism, unspecified; Z79.899 Other long term (current) drug therapy; Z90.49 Acquired absence of other specified parts of digestive tract
CPT/HCPCS: 36415; 71045; 74177; 80053; 81001; 83605; 83690; 84703; 85025; 85610; 87086; 96361; 96374; 96375; 96376; 99285; G0378; J2270; J2405; J3490; J7030

== ENCOUNTER → 2018-11-05 | Outpatient (CLI) | payer OTHER ==
[2018-11-05 14:04] LABS: HEMATOCRIT 36.3 % (36.0-47.0); HEMOGLOBIN 12.8 g/dL (12.0-15.5); MEAN CORPUSCULAR HEMOGLOBIN 28.8 pg (27.0-33.4); MEAN CORPUSCULAR HGB CONC 35.2 g/dL (32.0-36.0); MEAN CORPUSCULAR VOLUME 82 fl (80-97); PLATELET COUNT 290 10^3/uL (150-450); RED BLOOD COUNT 4.44 10^6/uL (3.72-5.28); RED CELL DISTRIBUTION WIDTH 14.1 % (11.5-14.0); WHITE BLOOD COUNT 7.6 10^3/uL (4.0-10.5)
--- NOTE | 2018-11-05 14:09 | RADIOLOGY REPORT (SQ) ---
EXAM DESCRIPTION: CT ABD/PELVIS WITH IV ORAL COMPLETED DATE/TIME: 11/05/2018 1:28 pm REASON FOR STUDY: R10.13 EPIGASTRIC PAIN R10.13 EPIGASTRIC PAIN R63.0 ANOREXIA COMPARISON: 03/24/2018 TECHNIQUE: CT scan of the abdomen and pelvis performed using helical scanning technique with dynamic intravenous contrast injection. No oral contrast. Images reviewed with lung, soft tissue, and bone w indows. Reconstructed coronal and sagittal MPR images reviewed. Delayed images for evaluation of the urinary system also acquired. All images stored on PACS. All CT scanners at this facility use dose modulation, iterative reconstruction, and/or weight based d osing when appropriate to reduce radiation dose to as low as reasonably achievable (ALARA). [facility]: Dose Right [facility]: CareDose [facility]: Dose Right [facility]: Teradose 4D [facility]: [employer] CONTRAST TYPE AND DOSE: contrast/concentration: Isovue 350.00 mg/ml; Total Contrast Delivered: 100.0 ml; Total Saline Delivered: 70.0 ml RENAL FUNCTION: GFR > 60. RADIATION DOSE: CT Rad equipment meets quality standard of care and radiation dose reduction techniq ues were employed. CTDIvol: 8.4 - 12.2 mGy. DLP: 1714 mGy-cm.. LIMITATIONS: None. FINDINGS: LOWER CHEST: No significant findings. LIVER: Normal size. No enhancing masses. No dilated ducts. SPLEEN: Normal size. No focal lesions. PANCREAS: No masses identified. No significant calcifications. No adjacent inflammation or peripancre atic fluid collections. Pancreatic duct not dilated. GALLBLADDER: Surgically absent. ADRENAL GLANDS: No significant masses. RIGHT KIDNEY AND URETER: No cysts identified. No solid masses identified. No calcified stones. No hyd ronephrosis or hydroureter. LEFT KIDNEY AND URETER: No cysts identified. No solid masses identified. No calcified stones. No hydr onephrosis or hydroureter. AORTA AND VESSELS: No aneurysm. No dissection. Renal arteries, SMA, celiac without significant stenos is. RETROPERITONEUM: No bulky retroperitoneal adenopathy. BOWEL AND PERITONEAL CAVITY: No obstruction or inflammatory changes. No free fluid. APPENDIX: Normal. PELVIS: No mass. No free fluid. Unremarkable bladder. ABDOMINAL WALL: No masses. No hernias. BONES: No acute findings. OTHER: No other significant finding. IMPRESSION: NO ACUTE FINDINGS IN THE ABDOMEN OR PELVIS ON CT SCAN WITH IV CONTRAST. TECHNICAL DOCUMENTATION: JOB ID: [id number] Quality ID # 436: Final reports with documentation of one or more dose reduction techniques (e.g., Au tomated exposure control, adjustment of the mA and/or kV according to patient size, use of iterative reconstruction technique) 2010 [employer]- All Rights Reserved Reading location - IP/workstation name: [email or web address]
[2018-11-05 14:13] LABS: ALANINE AMINOTRANSFERASE 13 U/L (9-52); ALBUMIN 4.2 g/dL (3.5-5.0); ALKALINE PHOSPHATASE 55 U/L (38-126); ANION GAP 10 (5-19); ASPARTATE AMINO TRANSFERASE 19 U/L (14-36); BILIRUBIN,DIRECT 0.2 mg/dL (0.0-0.4); BILIRUBIN,TOTAL 0.5 mg/dL (0.2-1.3); BLOOD UREA NITROGEN 10 mg/dL (7-20); CALCIUM 8.8 mg/dL (8.4-10.2); CARBON DIOXIDE 25 mmol/L (22-30); CHLORIDE 102 mmol/L (98-107); GLUCOSE 71 mg/dL (75-110); LIPASE 55.1 U/L (23-300); POTASSIUM 4.8 mmol/L (3.6-5.0); SODIUM 136.5 mmol/L (137-145); TOTAL PROTEIN 7.1 g/dL (6.3-8.2)
== END ==
LOC: RAD 12:51
PROVIDERS: ATTEND Internal Medicine Gastroenterology
DX: R10.13 Epigastric pain (principal); R63.0 Anorexia
CPT/HCPCS: 36415; 74177; 80048; 80076; 82565; 83690; 85027

== ENCOUNTER 2019-02-17 08:18 | Day surgery (SDC) | payer OTHER ==
[~2019-02-17 08:18] MED LIST changes: -DIPHENHYDRAMINE HCL 50 MG/ML VIAL ONE; -EPINEPHRINE INJ 1 MG/10 ML DISP.SYRIN ONE; -FENTANYL CITRATE INJ/PF 100 MCG/2 ML AMPUL ONE; -FLUMAZENIL INJ 0.5 MG/5 ML VIAL ONE; -GLUCAGON,HUMAN RECOMB 1 MG INJ ONE; -NALOXONE HCL INJ/PF 0.4 MG/1 ML SDV ONE; -ONDANSETRON HCL INJ/PF 4 MG/2 ML SDV ONE; +PROPOFOL INJ 200 MG/20 ML VIAL IV ONE
[2019-02-17 09:22] VITALS: BP 109/68
--- NOTE | 2019-02-17 12:14 | Operative Report ---
Operative Report DATE OF SURGERY: 02/17/19 Operative Report: The risks benefits and alternatives of the procedure explained to the patient in detail and informed consent is obtained.A GIF Olympus video scope was inserted into the patient's mouth and hypopharynx ,the esophagus is identified intubated and insufflated ,the scope was then advanced through the esophagus stomach and duodenum, retroflexion maneuver is done, the esophagus stomach and first and second portions of the duodenum examined. PREOPERATIVE DIAGNOSIS: Nausea vomiting POSTOPERATIVE DIAGNOSIS: Gastritis status post biopsy without Helicobacter pylori. Nodular gastritis noted OPERATION: EGD with biopsy ANESTHESIA: LMAC TISSUE REMOVED OR ALTERED: As noted above. COMPLICATIONS: None. ESTIMATED BLOOD LOSS: None. INTRAOPERATIVE FINDINGS: As noted above. PROCEDURE: Patient tolerated the procedure well. No immediate postprocedure complications are noted. Patient is discharged in good condition. Discharge date 02/17/2019. Discharge diet: Regular. Discharge activity: Regular. 2 to 3-week follow-up to discuss findings. Patient is instructed to call the office or proceed to the emergency room should there be any further questions. Wait on the pathology.
== END 2019-02-17 09:25 | disposition home or self-care (01) ==
LOC: END 08:18
PROVIDERS: ATTEND Internal Medicine Gastroenterology
DX: K29.60 Other gastritis without bleeding (principal); Z85.41 Personal history of malignant neoplasm of cervix uteri
CPT/HCPCS: 43239; 81025; 88305 ×2; 00731; J2704; 731

== ENCOUNTER → 2019-08-04 | Outpatient (CLI) | payer OTHER ==
--- NOTE | 2019-08-04 10:10 | RADIOLOGY REPORT (SQ) ---
EXAM DESCRIPTION: CT CHEST WITH IMAGES COMPLETED DATE/TIME: 08/04/2019 9:48 am REASON FOR STUDY: RUQ PAIN R10.11 RIGHT UPPER QUADRANT PAIN COMPARISON: None. TECHNIQUE: CT scan of the chest performed using helical scanning technique with dynamic intravenous contrast injection. Images reviewed with lung, soft tissue and bone windows. Reconstructed coronal and sagittal MPR and MIP images reviewed. All images stored on PACS. All CT scanners at this facility use dose modulation, iterative reconstruction, and/or weight based d osing when appropriate to reduce radiation dose to as low as reasonably achievable (ALARA). [facility]: Dose Right [facility]: CareDose [facility]: Dose Right [facility]: Teradose 4D [facility]: [employer] CONTRAST TYPE AND DOSE: contrast/concentration: Isovue 350.00 mg/ml; Total Contrast Delivered: 80.0 ml; Total Saline Delivered: 55.0 ml RENAL FUNCTION: None required. The patient is less than 50 years old. RADIATION DOSE: CT Rad equipment meets quality standard of care and radiation dose reduction techniq ues were employed. CTDIvol: 7.1 mGy. DLP: 229 mGy-cm. . LIMITATIONS: None. FINDINGS: LUNGS AND PLEURA: No opacities, nodules, masses. No pneumothorax. No effusions. HILAR AND MEDIASTINAL STRUCTURES: No identified masses or abnormal nodes. HEART AND VASCULAR STRUCTURES: No aneurysm or dissection. No central pulmonary emboli. No pericardi al effusion. HARDWARE: None in the chest. UPPER ABDOMEN: No significant findings. Limited exam. THYROID AND OTHER SOFT TISSUES: No masses. No adenopathy. BONES: No significant finding. OTHER: No other significant finding. IMPRESSION: NORMAL CT OF THE CHEST WITH IV CONTRAST. TECHNICAL DOCUMENTATION: JOB ID: [id number] Quality ID # [id number]: Final reports with documentation of one or more dose reduction techniques (e.g., Au tomated exposure control, adjustment of the mA and/or kV according to patient size, use of iterative reconstruction technique) 2010 [employer]- All Rights Reserved Reading location - IP/workstation name: [email or web address]
== END ==
LOC: RAD 09:46
PROVIDERS: ATTEND Internal Medicine Gastroenterology
DX: R10.11 Right upper quadrant pain (principal)
CPT/HCPCS: 71260

== ENCOUNTER → 2019-10-20 | Outpatient (CLI) | payer OTHER ==
--- NOTE | 2019-10-20 19:41 | RADIOLOGY REPORT (SQ) ---
EXAM DESCRIPTION: U/S THYROID/SFT TISS HD NECK IMAGES COMPLETED DATE/TIME: 10/20/2019 7:24 pm REASON FOR STUDY: I88.9 NONSPECIFIC LYMPHADENITIS, UNSPECIFIED I88.9 NONSPECIFIC LYMPHADENITIS, UNS PECIFIED COMPARISON: None. TECHNIQUE: Dynamic and static schuler-scale images acquired of the thyroid gland. Selected additional c olor/power Doppler images recorded. All images stored to PACS. LIMITATIONS: None. FINDINGS: RIGHT LOBE: The right lobe of the thyroid gland measures 4.4 x 1.3 x 1.4 cm, normal size. Homogeneous echotexture. No cystic or solid masses. LEFT LOBE: The left lobe of the thyroid gland measures 4.8 x 1.91.4 cm, normal size. Homogeneous ec hotexture. A hypoechoic solid 1.1 x 1.3 x 1.1 cm nodule in the lower pole with vascularity demonstra vani. ISTHMUS: The isthmus measures 2.1 mm, normal size. Homogeneous echotexture. No cystic or solid mass es. OTHER: Bilateral submandibular gland lymph nodes. The one on the right measures 1.0 x 1.0 cm, and o n the left 1.3 x 1.1 cm. A well-defined echogenic area in the right submandibular gland measures 2.8 x 3.4 x 3.0 mm and demonstrates increased vascularity. IMPRESSION: 1. Nodule in the left lobe of the thyroid gland as above. Please see comments below. 2. An echogenic fairly well defined area in the right submandibular gland demonstrates increased vas cularity. Bilateral submandibular gland lymph nodes are noted. Correlation suggested and further ev aluation with CT neck may be helpful. COMMENT: RECOMMENDATIONS FOR THYROID NODULES 1 CM OR LARGER Solitary nodules: Microcalcifications - FNA if 1 cm or greater. Solid or coarse calcification - FNA if 1.5 cm or greater. Mixed Solid/Cystic or Cystic with Mural Nodule - FNA if 2 cm or greater. None of the above but substantial growth since previous - FNA. Cystic with none of the above features and no significant growth - no FNA. Multiple nodules: Use above criteria for selection of nodules to FNA/biopsy. Biopsy probably not necessary in enlarged gland with multiple nodules of similar appearance. Abnormal lymph nodes - FNA/biopsy. Reference: Management of Thyroid Nodules Detected at [place]: Society of Radiologists in Ultrasound Consensus Stateme nt. Radiology 2005; 237:794-800 TECHNICAL DOCUMENTATION: JOB ID: [id number] 2010 [employer]- All Rights Reserved Reading location - IP/workstation name: [email or web address]
== END ==
LOC: RAD 16:49
PROVIDERS: ATTEND Physician Assistant
DX: I88.9 Nonspecific lymphadenitis, unspecified (principal); E04.1 Nontoxic single thyroid nodule
CPT/HCPCS: 76536

== ENCOUNTER → 2019-11-03 | Outpatient (CLI) | payer OTHER | LOC: OD 16:27 | PROVIDERS: ATTEND Surgery | DX: E03.9 Hypothyroidism, unspecified (principal); R63.4 Abnormal weight loss; R61 Generalized hyperhidrosis; R59.0 Localized enlarged lymph nodes | CPT/HCPCS: 36415; 80074; 86644; 86664; 86665; 86757 ==

== ENCOUNTER → 2019-11-04 | Outpatient (CLI) | payer OTHER ==
--- NOTE | 2019-11-04 15:14 | RADIOLOGY REPORT (SQ) ---
EXAM DESCRIPTION: CT SOFT TISSUE NECK WITH IMAGES COMPLETED DATE/TIME: 11/04/2019 1:58 pm REASON FOR STUDY: R49.0 DYSPHONIA, E04.1 NONTOXIC SINGLE THYROID NODULE, R63.4 ABNORMAL WEIGH R49.0 DYSPHONIA E04.1 NONTOXIC SINGLE THYROID NODULE R63.4 ABNORMAL WEIGHT LOSS COMPARISON: Ultrasound 10/20/2019 TECHNIQUE: Post IV contrasted scanning from skull base through lung apices with review of bone, soft tissue and lung windows. Reconstructed coronal and sagittal MPR images reviewed. All images stored on PACS. All CT scanners at this facility use dose modulation, iterative reconstruction, and/or weight based d osing when appropriate to reduce radiation dose to as low as reasonably achievable (ALARA). [facility]: Dose Right [facility]: CareDose [facility]: Dose Right [facility]: Teradose 4D [facility]: [employer] CONTRAST TYPE AND DOSE: contrast/concentration: Isovue 350.00 mmol/ml; Total Contrast Delivered: 75. 0 ml; Total Saline Delivered: 55.0 ml RENAL FUNCTION: None required. The patient is less than 50 years old. RADIATION DOSE: . LIMITATIONS: None. FINDINGS: SKULL BASE: Intact. MAJOR SALIVARY GLANDS: No solid or cystic masses. No inflammatory changes. LYMPHADENOPATHY: No adenopathy. MUCOSAL MASSES OR ASYMMETRY: There is asymmetrical soft tissue density in the right valleculum. LARYNX/CORDS: No abnormal findings. VASCULAR STRUCTURES: The major vessels are patent. LUNG APICES: Clear. BONES: Intact. THYROID: Heterogeneous 12 mm low-density lesion in the lower pole of the left lobe of the thyroid. PARANASAL SINUSES: Clear. OTHER: No other significant finding. IMPRESSION: 1. There is asymmetrical soft tissue density in the right valleculum. 2. Nodule in the lower pole of the left lobe of the thyroid gland. Refer to prior thyroid ultrasoun d. TECHNICAL DOCUMENTATION: JOB ID: [id number] Quality ID # 436: Final reports with documentation of one or more dose reduction techniques (e.g., Au tomated exposure control, adjustment of the mA and/or kV according to patient size, use of iterative reconstruction technique) 2010 [employer]- All Rights Reserved Reading location - IP/workstation name: [email or web address]
== END ==
LOC: RAD 13:32
PROVIDERS: ATTEND Physician Assistant
DX: E04.1 Nontoxic single thyroid nodule (principal); R49.0 Dysphonia; R63.4 Abnormal weight loss; R53.83 Other fatigue
CPT/HCPCS: 70491

== ENCOUNTER → 2019-11-05 | Outpatient (CLI) | payer OTHER ==
--- NOTE | 2019-11-05 09:38 | WOMENS IMAGING REPORT ---
EXAM DESCRIPTION: U/S AXILLARY ONLY IMAGES COMPLETED DATE/TIME: 11/05/2019 7:24 am REASON FOR STUDY: R59.0 LOCALIZED ENLARGED LYMPH NODES R59.0 LOCALIZED ENLARGED LYMPH NODES COMPARISON: None. TECHNIQUE: Dynamic and static grayscale images acquired of the localized site of clinical concern an d recorded on PACS. Additional selected color Doppler and spectral images recorded. SITE OF CONCERN: Right axilla LIMITATIONS: None. FINDINGS: SKIN AND SUBCUTANEOUS TISSUES: No masses. No fluid collections. No edema. No foreign heather s. DEEP SOFT TISSUES/MUSCLES: No masses. No fluid collections. No edema. VASCULAR: No increased or decreased vascularity. No occlusions. OTHER: In the deep right axilla, a benign-appearing 1.3 x 1.2 cm lymph node is present with preserved central hilar fat and normal cortical thickness. IMPRESSION: Single 1.3 x 1.2 cm normal appearing left axillary lymph node. TECHNICAL DOCUMENTATION: JOB ID: [id number] 2010 [employer]- All Rights Reserved Reading location - IP/workstation name: [email or web address]
== END ==
LOC: WI 06:51
PROVIDERS: ATTEND Surgery
DX: E04.1 Nontoxic single thyroid nodule (principal); E03.9 Hypothyroidism, unspecified; R59.0 Localized enlarged lymph nodes; R61 Generalized hyperhidrosis; R63.4 Abnormal weight loss
CPT/HCPCS: 76882

== ENCOUNTER 2019-12-23 06:23 | Day surgery (SDC) | payer OTHER ==
[2019-12-18 11:58] LABS: HEMATOCRIT 40.2 % (36.0-47.0); HEMOGLOBIN 13.8 g/dL (12.0-15.5); MEAN CORPUSCULAR HEMOGLOBIN 28.8 pg (27.0-33.4); MEAN CORPUSCULAR HGB CONC 34.2 g/dL (32.0-36.0); MEAN CORPUSCULAR VOLUME 84 fl (80-97); PLATELET COUNT 320 10^3/uL (150-450); RED BLOOD COUNT 4.78 10^6/uL (3.72-5.28); RED CELL DISTRIBUTION WIDTH 14.2 % (11.5-14.0); WHITE BLOOD COUNT 8.2 10^3/uL (4.0-10.5)
[2019-12-18 12:15] LABS: ANION GAP 9 (5-19); BLOOD UREA NITROGEN 10 mg/dL (7-20); CARBON DIOXIDE 26 mmol/L (22-30); CHLORIDE 105 mmol/L (98-107); GLUCOSE 87 mg/dL (75-110); POTASSIUM 4.2 mmol/L (3.6-5.0)
[~2019-12-23 06:23] MED LIST changes: +ACETAMINOPHEN 325 MG TABLET ONE; +ACETAMINOPHEN 325 MG TABLET PO PRN; +CEFAZOLIN 2 GM/D5W RTU 2 GM/50 ML RTUPB IV ONE; +CEFAZOLIN 2 GM/D5W RTU 2 GM/50 ML RTUPB IV PRN; +IBUPROFEN 800 MG in NORMAL SALINE 250 ML IV PRN; +LACTATED RINGERS 1000 ML IV PRN; +LIDOCAINE 0.5% INJ-PF (5 MG/ML) 50 ML SDV SUBCUT PRN; -PROPOFOL INJ 200 MG/20 ML VIAL IV ONE
[2019-12-23] MEDS ORDERED: MIDAZOLAM 2 MG/2 ML INJ ONE (07:01)
[2019-12-23] MEDS ORDERED: FENTANYL CITRATE INJ/PF 250 MCG/5 ML AMPULE ONE (07:01)
[2019-12-23] MEDS ORDERED: PROPOFOL INJ 200 MG/20 ML VIAL IV ONE (07:02)
[2019-12-23] MEDS ORDERED: BUPIVACAINE HCL 0.25 % INJ/PF (2.5 MG/1 ML) 30 ML VIAL ONE (07:36)
[2019-12-23] MEDS ORDERED: PHENYLEPHRINE HCL INJ/PF 10 MG/1 ML SDV ONE (09:10)
[2019-12-23] MEDS ORDERED: NEOSTIGMINE METHYLSULFATE 10 MG/10 ML VIAL ONE (09:10)
[2019-12-23] MEDS ORDERED: DEXAMETHASONE SOD PHOSPHATE INJ 4 MG/1 ML VIAL ONE (09:10)
[2019-12-23] MEDS ORDERED: ONDANSETRON HCL INJ/PF 4 MG/2 ML SDV ONE (09:11)
[2019-12-23] MEDS ORDERED: SUCCINYLCHOLINE CHLORIDE INJ 200 MG/10 ML VIAL ONE (09:11)
[2019-12-23] MEDS ORDERED: ROCURONIUM BROMIDE INJ 50 MG/5 ML VIAL IV ONE (09:11)
[2019-12-23] MEDS ORDERED: LIDOCAINE 2% INJ-PF (20 MG/ML) 2 ML AMPUL ONE (09:11)
[2019-12-23] MEDS ORDERED: GLYCOPYRROLATE 1 MG/5 ML VIAL ONE (09:11)
[2019-12-23] MEDS ORDERED: OXYCODONE-ACETAMINOPHEN 5-325 MG TABLET PO PRN ×2 (09:28)
[2019-12-23] MEDS ORDERED: ONDANSETRON HCL INJ/PF 4 MG/2 ML SDV IV PRN (09:28)
[2019-12-23] MEDS ORDERED: MEPERIDINE HCL/PF INJ 25 MG/1 ML DISP.SYRIN IV PRN (09:28)
[2019-12-23] MEDS ORDERED: FENTANYL CITRATE INJ/PF 100 MCG/2 ML AMPUL IV PRN ×3 (09:28)
[2019-12-23] MEDS ORDERED: DIPHENHYDRAMINE HCL 50 MG/ML VIAL IV PRN (09:28)
[2019-12-23] MEDS ORDERED: PROMETHAZINE HCL INJ 25 MG/1 ML VIAL IV PRN ×2 (09:28)
[2019-12-23] MEDS ORDERED: MORPHINE SULFATE 10 MG/ML INJ IV PRN (09:28)
[2019-12-23] MEDS ORDERED: HYDROMORPHONE HCL INJ/PF 2 MG/ML AMPULE IV PRN (09:31)
--- NOTE | 2019-12-23 10:06 | Discharge Summary ---
Discharge Summary (SDC) - Discharge Final Diagnosis: Thyroid cancer on the left Date of Surgery: 12/23/19 Discharge Date: 12/23/19 Condition: Stable Treatment or Instructions: Discharge home. Diet as tolerated. Activity: Nonstrenuous. Follow-up with [facility] in 7 to 10 days. Synthroid 125 mcg p.o. daily. Ribera 10/325 mg p.o. every 6 hours PRN for pain. Okay to shower starting . Prescriptions: Hydrocodone/Acetaminophen [Ribera 10-325 mg Tablet] 1 tab PO Q6HP PRN #14 tablet PRN Reason: For Pain Levothyroxine Sodium [Synthroid] 125 mcg PO DAILY #30 tablet Referrals: CHIVO JONES MD [Primary Care Provider] - Discharge Diet: As Tolerated Respiratory Treatments at Home: Deep Breathing/Coughing, Incentive Spirometer Discharge Activity: Balance Activity w/Rest Home Care Assistance: None Needed Report the Following to Your Physician Immediately: Shortness of Breath, Nausea, Vomiting, Increase in Pain, Fever over 101 Degrees, Unusual Bleeding, Redness, Numbness, Tingling Sensation, Visual Disturbance
--- NOTE | 2019-12-23 10:19 | Operative Report ---
Nonrecallable Operative Report DATE OF SURGERY: 12/23/19 PREOPERATIVE DIAGNOSIS: Left thyroid nodule, biopsy consistent with papillary thyroid cancer. POSTOPERATIVE DIAGNOSIS: Same as above OPERATION: Total thyroidectomy SURGEON: DU CORNEJO 1ST FUSING FURNACE LOADER: LITTLE TYLER ANESTHESIA: GA TISSUE REMOVED OR ALTERED: Total thyroidectomy COMPLICATIONS: None apparent ESTIMATED BLOOD LOSS: 20 cc PROCEDURE: Indication for the procedure: The patient presented to my office with worsening hoarseness and a nodule in the left inferior pole of the thyroid. The patient underwent ultrasound-guided FNA. Her pathology was consistent with papillary thyroid cancer. Patient was then sent for an ENT evaluation. She is found to have dysfunction of her left vocal cord. 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 In light of all these findings, the patient was scheduled for surgical intervention. Drains/implants: None. Procedure in detail: After informed consent was obtained, the patient was brought to the operating room and laid in the supine position. The area of the neck was prepped and draped in a normal sterile fashion. A 3 cm anterior curvilinear neck incision was created. Dissection was carried through the subcutaneous tissue using Bovie electrocautery. The platysma was divided. Subplatysmal flaps were raised superiorly and inferiorly. The anterior jugular veins were spared from injury. The midline was divided, at the median raphae. The strap muscles were retracted laterally. Dissection was begun on the left side of the thyroid. The superior pole was dissected first. Using blunt dissection, the superior pole vessels were identified, dissected, and isolated. They were divided using the harmonic scalpel. The middle thyroid vein was divided using the harmonic scalpel. The thyroid was then rotated medially. Using blunt dissection and harmonic scalpel dissection the gland was freed from the surrounding anterior tissues. The left superior parathyroid gland was not visually identified. Very carefully and gently, with blunt dissection, the recurrent laryngeal nerve on the left was identified. The left inferior pole tumor was found to be densely adherent to the nerve. At this time the inferior pole was dissected, and the tumor was left for last. The inferior pole was dissected using blunt dissection. The inferior thyroid artery was dissected immediately adjacent to the gland, using the harmonic scalpel. The left inferior parathyroid gland was identified and spared from injury. The gland was then rotated medially, and the area of the tumor was easier to access. With great care, using blunt dissection, the tumor was elevated and from the recurrent laryngeal nerve. The nerve was left intact in the left neck. Once this was completed, the gland was rotated medially and the ligament of Morelos was divided to the isthmus. The isthmus was then divided using the harmonic scalpel. The left thyroid lobe was passed off the field and sent to pathology. Attention was then turned to the right thyroid lobe. The superior pole was dissected free using blunt dissection. The superior thyroid artery was divided immediately adjacent to the gland using the harmonic scalpel. The superior right parathyroid gland was identified. It was spared from injury, and rotated laterally. The middle thyroid vein was divided using the harmonic scalpel. The gland was then rotated medially, and the recurrent laryngeal nerve was identified in its usual location. It was spared from any injury. The dissection in the lateral and posterior portions were done completely using blunt dissection. Attention was then turned to dissection of the inferior thyroid artery. The artery was isolated and divided immediately adjacent to the thyroid gland. The right inferior parathyroid gland was identified, and spared from any injury. It was left in situ. Next the entire gland was rotated medially, and the remaining ligament of Morelos was divided. The right thyroid gland was removed from the neck and passed off the field. Attention was then turned to hemostasis. Surgicel was left within the right and left neck. The neck was found to be completely hemostatic. The midline strap muscles were reapproximated using 2-0 Vicryl suture in simple running fashion. The platysma was then closed using 3-0 Vicryl suture in simple interrupted fashion. The overlying skin was closed using 4-0 Vicryl Rapide suture in running subcuticular fashion. A dressing was placed, and the procedure was concluded. All sponge, instrument, and needle counts were correct x2. Condition: Stable. Little Tyler PA-C was scrubbed and present the entirety of the procedure. She assisted with all portions of the procedure including opening of the neck, dissection of the gland, division of the arterial supply, identification of the nerve, closure of the muscular layers, and closure of the skin.
[2019-12-23] MEDS: MORPHINE SULFATE 10 MG/ML INJ ONE ×3 (10:20→10:30)
[2019-12-23] MEDS ORDERED: HYDROCODONE/ACETAMINOPHEN 10-325 MG TABLET PO PRN (10:25)
[2019-12-23] MEDS ORDERED: HYDROCODONE/ACETAMINOPHEN 5-325 MG TABLET ONE (11:12)
[2019-12-23] MEDS ORDERED: HYDROCODONE/ACETAMINOPHEN 10-325 MG TABLET ONE (11:14)
[2019-12-23 12:43] VITALS: BP 103/64
== END 2019-12-23 12:10 | disposition home or self-care (01) ==
LOC: OROUT 06:23
PROVIDERS: ATTEND Surgery
DX: C73 Malignant neoplasm of thyroid gland (principal); E03.9 Hypothyroidism, unspecified; E04.1 Nontoxic single thyroid nodule; K31.84 Gastroparesis; R59.0 Localized enlarged lymph nodes; D64.9 Anemia, unspecified; Z03.818 Encounter for observation for suspected exposure to other biological agents ruled out; Z85.41 Personal history of malignant neoplasm of cervix uteri; Z79.899 Other long term (current) drug therapy
CPT/HCPCS: 36415; 85027; 87635; 81025; 80048; 88307 ×2; 60240; J2250; J3490 ×3; J1100; J3010; J2270; J2710; J2370; J0330; J2405; J7050; J2704; J0690; J1741; C9803; 320

== ENCOUNTER → 2019-12-25 | Outpatient (CLI) | payer OTHER | LOC: OD 15:47 | PROVIDERS: ATTEND Surgery | DX: C73 Malignant neoplasm of thyroid gland (principal); Z98.890 Other specified postprocedural states | CPT/HCPCS: 36415; 82310 ==

== ENCOUNTER → 2020-01-30 | Outpatient (CLI) | payer OTHER ==
[2020-01-30 16:50] LABS: ABSOLUTE EOSINOPHILS # (AUTO) 0.1 10^3/uL (0.0-0.6); ABSOLUTE LYMPHOCYTES (AUTO) 1.4 10^3/uL (0.5-4.7); ABSOLUTE MONOCYTES (AUTO) 0.3 10^3/uL (0.1-1.4); ABSOLUTE NEUT (AUTO) 6.3 10^3/uL (1.7-8.2); BASOPHILS % (AUTO) 0.6 % (0-2); EOSINOPHILS % (AUTO) 1.2 % (0-6); HEMATOCRIT 36.6 % (36.0-47.0); LYMPHOCYTES % (AUTO) 17.3 % (13-45); MEAN CORPUSCULAR HEMOGLOBIN 29.1 pg (27.0-33.4); MEAN CORPUSCULAR HGB CONC 35.7 g/dL (32.0-36.0); MEAN CORPUSCULAR VOLUME 82 fl (80-97); MONOCYTES % (AUTO) 3.7 % (3-13); PLATELET COUNT 324 10^3/uL (150-450); RED BLOOD COUNT 4.48 10^6/uL (3.72-5.28); RED CELL DISTRIBUTION WIDTH 13.8 % (11.5-14.0); SEGMENTED NEUTROPHILS % (AUTO) 77.2 % (42-78); TOTAL CELLS COUNTED % (AUTO) 100 %; WHITE BLOOD COUNT 8.2 10^3/uL (4.0-10.5)
[2020-01-30 17:00] LABS: ALBUMIN 4.3 g/dL (3.5-5.0); ALKALINE PHOSPHATASE 61 U/L (38-126); ANION GAP 9 (5-19); ASPARTATE AMINO TRANSFERASE 18 U/L (14-36); BILIRUBIN,DIRECT 0.2 mg/dL (0.0-0.4); BILIRUBIN,TOTAL 0.4 mg/dL (0.2-1.3); BLOOD UREA NITROGEN 7 mg/dL (7-20); CARBON DIOXIDE 27 mmol/L (22-30); CHLORIDE 103 mmol/L (98-107); GLUCOSE 108 mg/dL (75-110); POTASSIUM 4.1 mmol/L (3.6-5.0); TOTAL PROTEIN 7.1 g/dL (6.3-8.2)
--- NOTE | 2020-01-30 17:09 | RADIOLOGY REPORT (SQ) ---
EXAM DESCRIPTION: CHEST PA/LATERAL IMAGES COMPLETED DATE/TIME: 01/30/2020 4:33 pm REASON FOR STUDY: (R07.9) CHEST PAIN, UNSPECIFIED COMPARISON: 03/26/2018 EXAM PARAMETERS: NUMBER OF VIEWS: two views TECHNIQUE: Digital Frontal and Lateral radiographic views of the chest acquired. RADIATION DOSE: NA LIMITATIONS: none FINDINGS: LUNGS AND PLEURA: No opacities, masses or pneumothorax. No pleural effusion. MEDIASTINUM AND HILAR STRUCTURES: No masses or contour abnormalities. HEART AND VASCULAR STRUCTURES: Heart normal size. No evidence for failure. BONES: No acute findings. HARDWARE: None in the chest. OTHER: No other significant finding. IMPRESSION: NO SIGNIFICANT RADIOGRAPHIC FINDING IN THE CHEST. TECHNICAL DOCUMENTATION: JOB ID: [id number] 2010 [employer]- All Rights Reserved Reading location - IP/workstation name: [email or web address]
[2020-01-30 17:15] LABS: CREATINE KINASE MB < 0.22 ng/mL (<4.55); TROPONIN I < 0.012 ng/mL
== END ==
LOC: OD 15:33
PROVIDERS: ATTEND Physician Assistant
DX: R07.9 Chest pain, unspecified (principal); E03.9 Hypothyroidism, unspecified
CPT/HCPCS: 36415; 71046; 80053; 82553; 84443; 84484; 85025; 85379

== ENCOUNTER → 2020-05-20 | Outpatient (CLI) | payer OTHER ==
--- NOTE | 2020-05-20 09:43 | ST Modified Barium Swallow ---
Recommendation - Recommendations Recommendations: Recommend medical aides teacher assessment for direct visualization of pharyngeal tissue. No overt abnormalities seen on fluoroscopy, however, some mildly thicker posterior pharyngeal tissue observed, not impacting swallow function. Patient may also benefit from GI cosult due to nature of some of the swallowing symptoms, including pressure/pain in chest after eating and globus sensation in absence of pharyngeal residue. If patient is still experiencing pain/effort with swallowing 6 months post operatively, may benefit from manual therapy for dysphagia/odynophagia if cleared by surgeon. Medical Diagnoses - Medical Diagnoses Medical Diagnosis Description & ICD-10 Code(s): R13.10 dysphagia Other Medical Diagnoses/Co-Morbidities: history of thyroid cancer, s/p total thyroidectomy December 2019, radiation treatment to thyroid x1 March 2020, gastoparesis. ST Modified Barium Swallow - General Date: 05/20/20 Referring Physician: Dr. Jama Risks/Precautions: None Date of Onset: 09/22/19 - approximate onset Reason for Referral: difficulty swallowing - History History obtained from: Patient - Patient provided her own history. She reports noticing difficulty swallowing since September 2019. Subsequently had surgery for thyroid cancer that December, swallowing was immediately more painful, and at this time better than it was, but still significant pain/difficulty with swallowing all textures -: Medical - Total thyroidectomy December 2019, reports that cancer was also "touching the left vocal cord". No surgery to larynx, did have radiation treatment x1 to this area. Did have significant hoarseness, this is improving. Medications: patient reports synthroid, prevalite, motegrity Allergies: none reported - Functional Status Prior Functional Status: INDEPENDENT: feeding - independent Current Functional Limitations: feeding - pain with swallowing - Subjective Patient/caregiver goal(s): improve intake, safe swallow Cognitive-Linguistic Function: WNL Speech Intelligibility: WNL Current Nutritional Means: PO Current symptoms: Pocketing - patient reports intermittent difficulty with solids, does report using more liquid supplements due to this Pain: Patient reports, 2/5 - throat pain-constant. Reports can increase to 5/5 with swallowing - Objective Assessment: Upright, Left Lateral - Food Trials Used Food trials used: Thin liquids, Pureed, Regular The patient: Was Able to Self Feed - Oral-Motor Skills Dentition: Full Velo-pharyngeal function: Unremarkable Laryngeal Function: hoarse - mild - Assessment Oral prep: Normal Labial closure: Adequate Leakage: None Mastication: Adequate Lingual Movement: Normal Oral stage: Normal for this Procedure - Pharyngeal Stage Initiation of Pharyngeal Stage Reflex: Normal Decreased laryngeal elevation: Yes - mild Reduced Velopharyngeal Closure: no Reduced pressure generation: No reduced tongue-based retraction: Yes - mild Pre-swallow pooling in valleculae: None Pre-Swallow pooling in pyriforms: None Reduced epiglottic excursion: No Reduced pharyngeal peristalsis/contraction: No Multiple Swallows with: Effective Post-swallow residulas vallecular: Mild Post-Swallow residuals in pyriforms: None Reduced Cricopharyngeal opening: No Pharyngeal Stage Comments: Some evidence of more prevalent soft tissue at posterior pharynx. However, this did not impact function of the swallow. Of note, patient did report globus sensation with cracker trials after the swallow, however, no evidence of pharyngeal residue observed on fluoroscopy. - Fall Risk Assessment Medications/Conditions that increase fall risks include: Antidepressants, sedatives, anti-arrhythmic, diuretic, benzodiazipenes, neuroleptics. BP regulation problems, cardiac problems, balance or gait deficits, neurological problems. Is patient considered at risk for falls: no Fall Risk Actions Taken: No action needed - Behavioral Observations During evaluation process patient: provided medical history - Treatment / Educational Needs: Treatment/Education Needs: Treatment consisted of patient education on the role of the Speech Pathologist. Patient's plan of care and golas were communicated as well as scheduling and attendance policies. Recommendations for initial home program were shared. Patient demonstrated understanding and verbalized agreement. - Impression/Summary Laryngeal Penetration: No Tracheal Aspiration: no Risk of Aspiration: Minimal Evaluation and Findings: Swallowing musculature is functional for all trial textures, no aspiration, penetration, or significant residue seen in pharynx. Patient does report some pain in the chest after eating at times (pointed mid- sternal). Due to timing and nature of symptoms, may benefit from evaluation of esophagus (GI). - Recommendations Solid diet recommendations: Regular Liquid Diet Modification: Thin Reflux Precautions: Taught to Patient Recommended techniques: Fully Upright During Meal, Small Bites and Sips Information, Precautions and Recommendations: Patient (Written), Patient (Verbal) Other recommendations: Symptoms of odynophagia may be related to tissue changes from surgery, or patient's compensatory strategies due to prolonged difficulty swallowing. If symptoms persist for more than 6 months post surgery, and if surgeon clears patient, may benefit from manual therapy to neck for possible reduction of symptoms. - Time Total Time: 30 - Plan of Care Strategies to optimize patient understanding include:: ongoing assessment of educational needs, implementation of educational strategies, and re-education. - - -: Thank you for the opportunity to work with this patient and his/her family. Should you have any questions about this patient's plan or progress, I can be reached at [phone].
--- NOTE | 2020-05-20 12:06 | RADIOLOGY REPORT (SQ) ---
EXAM DESCRIPTION: COOKIE SWALLOW IMAGES COMPLETED DATE/TIME: 05/20/2020 9:20 am REASON FOR STUDY: R13.10 DYSPHAGIA, UNSPECIFIED R13.10 DYSPHAGIA, UNSPECIFIED History of thyroid cancer COMPARISON: None. TECHNIQUE: Videofluoroscopic swallowing examination was performed in conjunction with speech patholo gy. Videofluoroscopic imaging was obtained and reviewed and these are the findings: RADIATION DOSE: Fluoro time 1.3 minutes 1 images saved to PACS. LIMITATIONS: None FINDINGS: The patient was brought into the fluoro room and placed upright on a modified barium swall ow chair. The patient was then given multiple consistencies mixed with barium to swallow under live fluoroscopic video guidance. According to the Speech Pathologist there was no penetration or aspirat ion. Please refer to the speech pathology report for further details. IMPRESSION: NO EVIDENCE OF PENETRATION OR ASPIRATION. PLEASE SEE SPEECH PATHOLOGIST REPORT FOR OTHER FINDINGS AND RECOMMENDATIONS. COMMENT: None Quality ID [id number]: Final reports for procedures using fluoroscopy that document radiation exposure vargas khushboo, or exposure time and number of fluorographic images (if radiation exposure indices are not avail able) TECHNICAL DOCUMENTATION: JOB ID: [id number] 2010 [employer]- All Rights Reserved Reading location - IP/workstation name: [email or web address]
== END ==
LOC: RAD 08:14
PROVIDERS: ATTEND Surgery
DX: R13.10 Dysphagia, unspecified (principal); Z85.850 Personal history of malignant neoplasm of thyroid
CPT/HCPCS: 74230